=== PATIENT | male | born 1960 | race Caucasian/White ===

== ENCOUNTER 2023-09-28 03:57 | Emergency (ER) | payer BC, OTHER ==
[2023-09-28 04:33] LABS: Absolute Lymphocytes (CBC) 0.6 K/uL (0.7-4.9); Absolute Monocytes 0.7 K/uL (0.1-1.3); Basophils % 0.1 % (0-1.3); Eosinophils % 0.3 % (0-4.4); Hematocrit 43.4 % (39.6-49.0); Hemoglobin 14.5 g/dL (13.6-17.9); MCH 32.6 pg (27.0-35.0); MCHC 33.5 g/dL (32.0-36.0); MCV 97.4 fL (80-100); MPV 9.6 fL (7.6-11.3); Monocytes % 6.7 % (3.3-12.3); Neutrophils % 86.9 % (41.7-73.7); Nucleated Red Blood Cells % 0.4 % (0-0); Platelets 81 thou/uL (152-406); RBC Red Blood Cell Count 4.46 M/uL (4.33-5.43); Red Cell Distribution Width 17.9 % (12.1-15.2)
[2023-09-28] MEDS ORDERED: FLUCONAZOLE 100 MG TAB ONE (04:50)
[2023-09-28] MEDS ORDERED: FUROSEMIDE 40 MG/4 ML VIAL ONE (04:50)
[2023-09-28 05:04] LABS: Albumin 2.1 g/dL (3.4-5.0); Albumin/Globulin Ratio 0.7 (1.1-1.8); Anion Gap 7.3 mEq/L (5.0-15.0); Bilirubin Direct 3.1 mg/dL (0-0.2); Bilirubin Indirect, Calculated 3.2 mg/dL (0.2-0.8); Bilirubin Total 6.3 mg/dL (0.2-1.0); Magnesium 1.7 mg/dL (1.6-2.4); Potassium 4.3 mEq/L (3.5-5.1); Protein, Total 5.1 g/dL (6.4-8.2)
[2023-09-28 05:10] LABS: Troponin High Sensitivity 103.7 pg/mL (<58.9)
[2023-09-28 05:39] LABS: Specific Gravity > 1.030 (1.005-1.030); Sqamous Epithelial <5 /HPF (None Seen); Urine Bacteria None Seen /HPF (<20); Urine Bilirubin 1+ (Negative); Urine Blood 3+ (OVER) (Negative); Urine Clarity Extremely Turbid (Clear); Urine Color Dark-Orange (Yellow); Urine Culture Reflex Order REFLEXED; Urine Glucose NEGATIVE (Negative); Urine Ketones NEGATIVE (Negative); Urine Micro Reflex YN NO BILL MICROSCOPIC; Urine Mucus 3+ /HPF (None Seen); Urine Nitrite NEGATIVE (Negative); Urine Protein 1+ (Negative); Urine RBC >50 /HPF (None Seen); Urine Urobilinogen 4+ (Over) (Normal); Urine WBC >50 /HPF (<5)
[2023-09-28] MEDS ORDERED: ALBUMIN HUMAN 25% 100 ML IV ONE (05:52)
--- NOTE | 2023-09-28 10:12 | EDPHYS ---
Physician Documentation [facility] Name: Femi Marie Age: 63 yrs Sex: Male : 1960 Arrival Date: 09/28/2023 Time: 03:57 Bed 3 Private MD: ED Physician José Manuel Jimenez HPI: 09/27 04:15 This 63 yrs old Male presents to ER via Unassigned with complaints of weakness. rt 04:15 Patient presents to the ED with generalized weakness. Patient is a progressively rt worsening weakness. Tonight, patient slid down, was unable to get up, denies any pains at this time, denies other acute complaints, symptoms are moderate in severity, no other aggravating or alleviating factors.. Historical: - Allergies: 04:18 No Known Allergies; lg3 - Home Meds: 04:18 Furosemide Oral [Active]; aspirin 81 mg Oral capsule daily [Active]; Plavix Oral lg3 [Active]; - PMHx: 04:18 Hypertension; lg3 - PSHx: 04:18 cardiac ablasian (Hypertension); cardic stents (Hypertension); lg3 - Immunization history:: Adult Immunizations up to date, Client reports receiving the 2nd dose of the Covid vaccine, Flu vaccine is not up to date. - Infectious Disease History:: Denies. - Social history:: Smoking status: Patient reports the use of cigarette tobacco products, denies chronic smoking, but will smoke occasionally, Patient uses alcohol, occasionally. ROS: 04:15 Constitutional: Negative for fever, chills, and weight loss, Cardiovascular: Negative rt for chest pain, palpitations, and edema, Respiratory: Negative for shortness of breath, cough, wheezing, and pleuritic chest pain, Abdomen/GI: Negative for abdominal pain, nausea, vomiting, diarrhea, and constipation, MS/Extremity: Negative for injury and deformity, Skin: Negative for injury, rash, and discoloration, 04:15 Neuro: Positive for weakness, Negative for altered mental status, Exam: 04:15 Constitutional: This is a well developed, well nourished patient who is awake, alert, rt and in no acute distress. Head/Face: Normocephalic, atraumatic. Chest/axilla: Normal chest wall appearance and motion. Nontender with no deformity. No lesions are appreciated. Cardiovascular: Regular rate and rhythm with a normal S1 and S2. No gallops, murmurs, or rubs. Normal PMI, no JVD. No pulse deficits. Respiratory: Lungs have equal breath sounds bilaterally, clear to auscultation and percussion. No rales, rhonchi or wheezes noted. No increased work of breathing, no retractions or nasal flaring. Abdomen/GI: Soft, non-tender, with normal bowel sounds. No distension or tympany. No guarding or rebound. No evidence of tenderness throughout. Skin: Warm, dry with normal turgor. Normal color with no rashes, no lesions, and no evidence of cellulitis. MS/ Extremity: Pulses equal, no cyanosis. Neurovascular intact. Full, normal range of motion. Neuro: Awake and alert, GCS 15, oriented to person, place, time, and situation. Cranial nerves II-XII grossly intact. Motor strength 5/5 in all extremities. Sensory grossly intact. Cerebellar exam normal. Normal gait. 04:15 ECG was reviewed by the Attending Physician. rt Vital Signs: 04:17 BP 118 / 60; Pulse 78; Resp 97 S; Temp 98.3(O); Pulse Ox 97% on R/A; Weight 151.5 kg lg3 (M); Height 5 ft. 8 in. (R); Pain 0/10; 05:15 BP 95 / 63; Pulse 78; Resp 18 S; Pulse Ox 96% on R/A; jw7 06:30 BP 112 / 65; Pulse 75; Resp 19 S; Pulse Ox 93% on R/A; jw7 08:00 BP 124 / 65; Pulse 76; Resp 15; Pulse Ox 93% ; bp 09:13 BP 113 / 47; Pulse 74; Resp 14; Pulse Ox 95% on R/A; mb9 11:30 BP 101 / 48; Pulse 72; Resp 13; Pulse Ox 92% ; bp 12:58 BP 119 / 60; Pulse 73; Resp 15; Pulse Ox 94% ; bp 04:17 Body Mass Index 50.78 (151.50 kg, 172.72 cm) lg3 04:17 Pain Scale: Adult lg3 MDM: 04:03 Patient medically screened. rt 07:13 Data reviewed: vital signs. ec2 07:18 ED course: Patient arrives today for evaluation of generalized weakness. Patient with ec2 multiple lab abnormalities including an elevated total bilirubin. Patient also with elevated CPK. Patient was given Lasix for diuresis due to concern for anasarca. Plan is to follow-up ultrasound, likely transfer patient given bilirubin abnormalities.. 10:34 ED course: Ultrasound shows hepatocellular disease, no obstructive process found. Will ec2 proceed with transfer to another facility given elevated total bilirubin level, jaundice, volume overload. . 11:28 ED course: Discussed case with who agrees accept patient for admission and ec2 transfer. Patient updated regarding plan of care.. 11:28 ED course: Patient being transferred for GI capabilities.. ec2 09/27 04:04 Order name: Basic Metabolic Panel; Complete Time: 05:46 rt 09/27 04:04 Order name: CBC with Diff; Complete Time: 05:46 rt 09/27 04:04 Order name: LFT's; Complete Time: 05:46 rt 09/27 04:04 Order name: Magnesium; Complete Time: 05:46 rt 09/27 04:04 Order name: Troponin HS; Complete Time: 05:46 rt 09/27 04:04 Order name: CPK; Complete Time: 05:46 rt 09/27 04:04 Order name: UAM; Complete Time: 05:46 rt 09/27 04:34 Order name: BNP; Complete Time: 08:12 rt 09/27 05:47 Order name: Urine Culture EDMS 09/27 04:04 Order name: XRAY Chest (1 view) rt 09/27 04:33 Order name: CT Abd/Pelvis - Without Contrast rt 09/27 06:55 Order name: US Abdomen Limited; Complete Time: 10:34 rt 09/27 04:04 Order name: Cardiac monitoring; Complete Time: 04:23 rt 09/27 04:04 Order name: EKG - Nurse/Tech; Complete Time: 04:23 rt 09/27 04:04 Order name: IV Saline Lock; Complete Time: 04:45 rt 09/27 04:04 Order name: Labs collected and sent; Complete Time: 04:45 rt 09/27 04:04 Order name: O2 Per Protocol; Complete Time: 04:23 rt 09/27 04:04 Order name: O2 Sat Monitoring; Complete Time: 04:23 rt EC:15 Rate is 79 beats/min. Rhythm is regular, A fib with No ectopy, Bifascicular block rt noted. QRS [place] is Normal. QRS interval is normal. QT interval is normal. No Q waves. Administered Medications: 04:57 Drug: Fluconazole PO 200 mg PO once Route: PO; lg3 09:44 Follow up: Response: No adverse reaction bp 04:57 Drug: Furosemide IVP 40 mg IVP once; give over 2 minutes Route: IVP; Site: left lg3 antecubital; 09:44 Follow up: Response: No adverse reaction bp 06:00 Drug: Albumin IVPB 25 grams 100 ml IVPB once; (Note: Albumin 25% concentration) Volume: lg3 100 ml; Route: IVPB; Site: left antecubital; 10:40 Follow up: IV Status: Completed infusion; IV Intake: 100ml bp 10:40 Drug: Aspirin PO Chewable Tablet 324 mg PO once; 81 mg tablets x 4 Route: PO; bp 10:40 Follow up: Response: No adverse reaction bp Disposition Summary: 09/28/23 10:12 Transfer Ordered Notes: Transfer Location: [facility] ec2 Reason: Higher level of care ec2 Condition: Stable ec2 Problem: new ec2 Symptoms: are unchanged ec2 Accepting Physician: Dr. Subhash Forrester/ [facility](09/28/23 13:04) bp Diagnosis - Disorder of bilirubin metabolism, unspecified ec2 - Anasarca ec2 - Rhabdomyolysis ec2 - Elevated Troponin ec2 Discharge Instructions: - Discharge Summary Sheet lg3 Forms: - SBAR form lg3 - Medication Reconciliation Form ec2 Signatures: Dispatcher [employer] Ben Laboy RN RN bp Jackelin Juárez Lacie, RN RN lg3 Maximus Otero MD MD rt José Manuel Jimenez MD MD ec2 Corrections: (The following items were deleted from the chart) 04:04 04:04 BASIC METABOLIC PANEL+C.LAB.BRZ ordered. EDMS EDMS 04:04 04:04 CBC+H.LAB.BRZ ordered. EDMS EDMS 04:04 04:04 HEPATIC FUNCTION+C.LAB.BRZ ordered. EDMS EDMS 04:04 04:04 MAGNESIUM+C.LAB.BRZ ordered. EDMS EDMS 04:04 04:04 Troponin High Sensitivity+C.LAB.BRZ ordered. EDMS EDMS 04:04 04:04 CREATINE PHOSPHOKINASE+C.LAB.BRZ ordered. EDMS EDMS 04:04 04:04 Urinalysis W/Microscopic+U.LAB.BRZ ordered. EDMS EDMS 04:04 04:04 Chest Single View+RAD.RAD.BRZ ordered. EDMS EDMS 10:46 10:12 transferring doc ec2 ec2 12:23 10:46 transferring doc ec2 eb 13:04 12[facility]
--- NOTE | 2023-09-28 10:12 | ER ---
Nurse's Notes [facility] Name: Femi Marie Age: 63 yrs Sex: Male : 1960 Arrival Date: 09/28/2023 Time: 03:57 Bed 3 Private MD: Diagnosis: Disorder of bilirubin metabolism, unspecified;Anasarca;Rhabdomyolysis;Elevated Troponin Presentation: 09/27 04:17 Chief complaint: Patient states: weakness X2 days. Coronavirus screen: Client denies lg3 travel out of the [place] in the last 14 days. At this time, the client does not indicate any symptoms associated with coronavirus-19. Ebola Screen: No symptoms or risks identified at this time. Initial Sepsis Screen: Does the patient meet any 2 criteria? No. Patient's initial sepsis screen is negative. Does the patient have a suspected source of infection? No. Patient's initial sepsis screen is negative. Risk Assessment: Do you want to hurt yourself or someone else? Patient reports no desire to harm self or others. Onset of symptoms is unknown. 04:17 Method Of Arrival: EMS: [facility] lg3 04:17 Acuity: ALFONSO 3 lg3 Triage Assessment: 04:18 General: Appears in no apparent distress. comfortable, Behavior is calm, cooperative. lg3 Pain: Denies pain. EENT: No deficits noted. No signs and/or symptoms were reported regarding the EENT system. Neuro: No deficits noted. [place]pe Agitation-Sedation Scale (RASS): 0 - Alert and Calm Level of Consciousness is awake, alert, obeys commands, Oriented to person, place, time, situation, Reports weakness. Cardiovascular: No deficits noted. Denies chest pain, shortness of breath, Capillary refill < 3 seconds Clubbing of nail beds is absent JVD is absent Patient's skin is warm and dry. Respiratory: No deficits noted. Airway is patent Respiratory effort is even, unlabored, Respiratory pattern is regular, symmetrical. GI: No deficits noted. No signs and/or symptoms were reported involving the gastrointestinal system. Abdomen is round non-distended, obese, Bowel sounds present X 4 quads. : No deficits noted. No signs and/or symptoms were reported regarding the genitourinary system. Derm: Skin is intact, is fragile, Skin is dry, Skin is jaundiced, Skin temperature is warm reddening and swelling to right arm noted. Musculoskeletal: Circulation, motion, and sensation intact. Range of motion: intact in all extremities, Swelling present in groin, right arm, left arm, right leg and left leg. Historical: - Allergies: 04:18 No Known Allergies; lg3 - Home Meds: 04:18 Furosemide Oral [Active]; aspirin 81 mg Oral capsule daily [Active]; Plavix Oral lg3 [Active]; - PMHx: 04:18 Hypertension; lg3 - PSHx: 04:18 cardiac ablasian (Hypertension); cardic stents (Hypertension); lg3 - Immunization history:: Adult Immunizations up to date, Client reports receiving the 2nd dose of the Covid vaccine, Flu vaccine is not up to date. - Infectious Disease History:: Denies. - Social history:: Smoking status: Patient reports the use of cigarette tobacco products, denies chronic smoking, but will smoke occasionally, Patient uses alcohol, occasionally. Screenin:22 [facility] ED Fall Risk Assessment (Adult) History of falling in the last 3 months, lg3 including since admission Yes- single mechanical fall (1 pt) Confusion or Disorientation No (0 pts) Intoxicated or Sedated No (0 pts) Impaired Gait Yes (1 pt) Mobility Assist Device Used Yes (1 pt) Altered Elimination No (0 pt) Score/Fall Risk Level 3 or more points = High Risk Oriented to surroundings, Maintained a safe environment, Educated pt \T\ family on fall prevention, incl call for assistance when getting out of bed, Assessed \T\ reinforced patient's understanding of fall precautions, Provided non-skid footwear. Abuse screen: Denies threats or abuse. Denies injuries from another. Nutritional screening: No deficits noted. Tuberculosis screening: No symptoms or risk factors identified. Assessment: 04:22 General: see triage assessment. lg3 05:26 Reassessment: Patient appears in no apparent distress at this time. No changes from jw7 previously documented assessment. Patient and/or family updated on plan of care and expected duration. Pain level reassessed. Patient is alert, oriented x 3, equal unlabored respirations, skin warm/dry/pink. 06:39 Reassessment: Patient appears in no apparent distress at this time. No changes from jw7 previously documented assessment. Patient and/or family updated on plan of care and expected duration. Pain level reassessed. Patient is alert, oriented x 3, equal unlabored respirations, skin warm/dry/pink. 06:44 Reassessment: Patient appears in no apparent distress at this time. No changes from lg3 previously documented assessment. Patient and/or family updated on plan of care and expected duration. Pain level reassessed. Patient is alert, oriented x 3, equal unlabored respirations, skin warm/dry/pink. 07:00 Reassessment: RECD REPORT FROM HEIKE MONSALVE. 63YO WM P/W ANASARCA AND FAILURE OF SELF CARE. bp DISPO PENDING. 08:11 Reassessment: U/S AT BEDSIDE. bp 11:30 Reassessment: TRANSFER IN PROCESS. bp 12:19 Reassessment: REPORT TO SUSI MONSALVE AT [facility] 2402. bp 12:57 Reassessment: EMS AT B/S FOR TRANSPORT. bp Vital Signs: 04:17 BP 118 / 60; Pulse 78; Resp 97 S; Temp 98.3(O); Pulse Ox 97% on R/A; Weight 151.5 kg lg3 (M); Height 5 ft. 8 in. (R); Pain 0/10; 05:15 BP 95 / 63; Pulse 78; Resp 18 S; Pulse Ox 96% on R/A; jw7 06:30 BP 112 / 65; Pulse 75; Resp 19 S; Pulse Ox 93% on R/A; jw7 08:00 BP 124 / 65; Pulse 76; Resp 15; Pulse Ox 93% ; bp 09:13 BP 113 / 47; Pulse 74; Resp 14; Pulse Ox 95% on R/A; mb9 11:30 BP 101 / 48; Pulse 72; Resp 13; Pulse Ox 92% ; bp 12:58 BP 119 / 60; Pulse 73; Resp 15; Pulse Ox 94% ; bp 04:17 Body Mass Index 50.78 (151.50 kg, 172.72 cm) lg3 04:17 Pain Scale: Adult lg3 ED Course: 04:03 Patient arrived in ED. pf1 04:03 Maximus Otero MD is Attending Physician. rt 04:06 Heidi Miller RN is Primary Nurse. lg3 04:18 Triage completed. lg3 04:18 Arm band placed on left wrist. lg3 04:22 Patient has correct armband on for positive identification. Placed in gown. Bed in low lg3 position. Call light in reach. Side rails up X 1. Client placed on continuous cardiac and pulse oximetry monitoring. NIBP monitoring applied. glazing superintendent on. Door closed. Noise minimized. Warm blanket given. Cleaned of incontinence. Linen changed. 04:25 No provider procedures requiring assistance completed. Inserted saline lock: 22 gauge pf1 in left antecubital area, using aseptic technique. Blood collected. 04:25 Initial lab(s) drawn, by me, sent to lab. pf1 04:30 XRAY Chest (1 view) In Process Unspecified. EDMS 04:45 Basic Metabolic Panel Sent. lg3 04:45 LFT's Sent. lg3 04:45 Magnesium Sent. lg3 04:45 Troponin HS Sent. lg3 05:10 Notified ED physician of a critical lab result(s). Troponin 103.7. cm10 05:25 Assisted with urinal. Cleaned of incontinence. jw7 05:41 CT Abd/Pelvis - Without Contrast In Process Unspecified. EDMS 07:03 Attending Physician role handed off by Maximus Otero MD ec2 07:03 José Manuel Jimenez MD is Attending Physician. ec2 08:35 US Abdomen Limited In Process Unspecified. EDMS 11:00 initiated a transfer with Marlyn from the [facility]. eb 11:21 connected the hospitalist construction flagger for [facility] with Dr. Jimenez for patient eb transfer consultation. 12:05 administrative approval given by Marlyn Price/ patient has been accepted to [facility] room 2402/ Dr. Sumi Forrester has accepted the patient in transfer/ report to be called to [phone]. 12:21 [facility] called for transport/ [facility] currently they are doing eb two transfers currently. 12:58 Patient transferred, IV remains in place. bp 12:59 Provided Education on: N/A. bp Administered Medications: 04:57 Drug: Fluconazole PO 200 mg PO once Route: PO; lg3 09:44 Follow up: Response: No adverse reaction bp 04:57 Drug: Furosemide IVP 40 mg IVP once; give over 2 minutes Route: IVP; Site: left lg3 antecubital; 09:44 Follow up: Response: No adverse reaction bp 06:00 Drug: Albumin IVPB 25 grams 100 ml IVPB once; (Note: Albumin 25% concentration) Volume: lg3 100 ml; Route: IVPB; Site: left antecubital; 10:40 Follow up: IV Status: Completed infusion; IV Intake: 100ml bp 10:40 Drug: Aspirin PO Chewable Tablet 324 mg PO once; 81 mg tablets x 4 Route: PO; bp 10:40 Follow up: Response: No adverse reaction bp Medication: 12:59 VIS not applicable for this client. bp Intake: 10:40 IV: 100ml; Total: 100ml. bp Outcome: 10:12 ER care complete, transfer ordered by . ec2 12:58 Transferred by [facility] to [facility], Transfer form completed. bp 12:58 Condition: stable 12:58 Instructed on the need for transfer, 13:04 Patient left the ED. bp Signatures: Dispatcher [employer] EDBen Ruiz RN RN bp Jackelin Juárez Lacie RN RN lg3 Heike Smith, RN RN jw7 Emmie Cope, RN RN mb9 Maximus Otero MD MD rt Krystal Rowell RN RN pf1 Kennedi Rodriguez RN RN cm10 José Manuel Jimenez MD MD ec2 Corrections: (The following items were deleted from the chart) 04:57 04:18 General: Appears in no apparent distress. comfortable, Behavior is calm, lg3 cooperative, lg3 04:57 04:18 Derm: Skin is intact, is healthy with good turgor, Skin is dry, Skin is normal, lg3 Skin temperature is warm reddening and swelling to right arm noted lg3 04:57 04:18 Musculoskeletal: Circulation, motion, and sensation intact. Range of motion: lg3 intact in all extremities, lg3 05:46 04:18 Derm: Skin is intact, is fragile, Skin is dry, Skin is normal, Skin temperature lg3 is warm reddening and swelling to right arm noted lg3
--- NOTE | 2023-09-28 10:23 | RAD REPORT ---
EXAM DESCRIPTION: US - Abdomen Exam Limited - 09/28/2023 10:05 am CLINICAL HISTORY: ruq, hyperbilirubinemia COMPARISON: Abdomen Pelvis Wo Contrast dated 09/28/2023 TECHNIQUE: Sonographic grayscale and color flow images of the right upper abdominal quadrant were o btained. FINDINGS: Poor penetration somewhat limits evaluation. The gallbladder demonstrates no gallstones and is moderately distended. No pericholecystic fluid or g allbladder wall thickening. The common bile duct is normal measuring 3 mm. The liver demonstrates smooth contour and diffusely heterogeneous parenchyma. Hepatopetal flow in the main portal vein. No focal lesions are appreciated. No findings of intrahepatic biliary dilatation. IMPRESSION: Heterogeneous hepatic parenchyma, suggesting medical hepatocellular disease. Moderately distended gallbladder, with no other acute findings. Correlate for NPO status.
[2023-09-28] MEDS ORDERED: ASPIRIN 81 MG CHEWABLE TABLET ONE (10:25)
[2023-09-28 13:09] VITALS: TEMP 98.3
[2023-09-28 13:30] VITALS: BP 119/60; O2SAT 94
--- NOTE | 2023-09-28 15:04 | RAD REPORT ---
EXAM DESCRIPTION: RAD - Chest Single View - 09/28/2023 4:28 am CLINICAL HISTORY: Weakness COMPARISON: None TECHNIQUE: 2 AP views of the chest. FINDINGS: Lung volumes adequate. Cardiac silhouette is enlarged. No pneumothorax. Probable small right pleural effusion. Bilateral interstitial thickening. No focal consolidation. No acute bony finding. IMPRESSION: 1. Probable small right pleural effusion. 2. Bilateral interstitial thickening. 3. Enlarged cardiac silhouette. Electronically signed by: Hue Cole MD 09/28/2023 04:45 AM CDT Due to temporary technical issues with the PACS/Fluency reporting system, reports are being signed by the in house radiologists without review as a courtesy to insure prompt reporting. The interpreting radiologist is fully responsible for the content of the report.
--- NOTE | 2023-09-28 15:09 | RAD REPORT ---
EXAM DESCRIPTION: CT - Abdomen Pelvis Wo Contrast - 09/28/2023 6:50 am CLINICAL HISTORY: Scrotal edema, erythema COMPARISON: None. TECHNIQUE: CT ABDOMEN PELVIS WITHOUT IV CONTRAST on 09/28/2023 4:33 AM CDT This exam was performed according to our departmental dose-optimization program, which includes autom ated exposure control, adjustment of the mA and/or kV according to patient size and/or use of iterati ve reconstruction technique. FINDINGS: The heart is mildly enlarged. There is a moderate right pleural effusion. There is right b asilar atelectasis. Abdomen: The liver is normal in appearance. There is no biliary dilatation. Gallbladder contains laye ring sludge. The pancreas and spleen are normal in appearance. Adrenal glands are normal. Kidneys are mildly atrophic. Abdominal aorta is moderately calcified without aneurysm. There is no free air. There is no retroperi toneal adenopathy. There is extensive body wall anasarca. There is edema within the perineum and part ially visualized scrotum. The full extent of the scrotum is not seen. Pelvis: There is no bowel obstruction. Urinary bladder is unremarkable. There is no free fluid. Appen yuri is not seen. Skeleton: There are no acute osseous findings. No suspicious bony lesions. Right hip arthroplasty was performed. IMPRESSION: Extensive body wall anasarca with edema within the perineum and partially visualized scr otum. Right pleural effusion. Electronically signed by: Malcom Amato MD 09/28/2023 06:10 AM CDT Due to temporary technical issues with the PACS/Fluency reporting system, reports are being signed by the in house radiologists without review as a courtesy to insure prompt reporting. The interpreting radiologist is fully responsible for the content of the report.
--- NOTE | 2023-10-01 13:29 | EKG ---
Test Date: 2023-09-28 Test Time: 04:11:31 2[address] [place]: MEASUREMENT RESULTS: Intervals: Rate: 79 OK: QRSD: 126 QT: 520 QTc: [address]: P: OK: QRS: 160 T: 80 INTERPRETIVE STATEMENTS: Atrial fibrillation Right bundle branch block Left posterior fascicular block Bifascicular block Abnormal ECG Compared to ECG 11/06/2016 16:22:28 Right bundle-branch block now present Left posterior fascicular block now present Bifascicular block now present Sinus rhythm no longer present Ventricular premature complex(es) no longer present Left bundle-branch block no longer present Prolonged QT interval no longer present Electronically Signed On 10-01-23 13:19:45 CDT by Brando Pagan
== END 2023-09-28 13:04 | disposition short-term general hospital (02) ==
LOC: ER 03:57
DX: E80.7 Disorder of bilirubin metabolism, unspecified (principal); R60.1 Generalized edema; M62.82 Rhabdomyolysis; R79.89 Other specified abnormal findings of blood chemistry; I10 Essential (primary) hypertension; F17.210 Nicotine dependence, cigarettes, uncomplicated; Z95.818 Presence of other cardiac implants and grafts; Z79.01 Long term (current) use of anticoagulants; Z79.82 Long term (current) use of aspirin
CPT/HCPCS: 96365; 87088; 85025; 81001; 87086; 80048; 36415; 83735; 82550; 80076; 84484; 83880; 74176; 71045; 76705; 96375; 99285; 96366; J1940; P9047; 93005